=== PATIENT | male | born 1980 | race Caucasian/White ===

== ENCOUNTER 2022-05-23 07:37 | Emergency (ER) | payer BC ==
[~2022-05-23] VITALS: Ht 182.9 cm; Wt 111.5 kg
[2022-05-23] MEDS ORDERED: ZYLO100T2 PO (07:50)
[2022-05-23] MEDS ORDERED: XARE20TA PO (07:50)
[2022-05-23] MEDS ORDERED: LISI5TAB11 PO (07:50)
[2022-05-23] MEDS ORDERED: ROSU20TA5 PO (07:50)
[2022-05-23] MEDS ORDERED: FLEC150T PO (07:50)
[2022-05-23] MEDS ORDERED: PRED20TA PO (08:18)
[2022-05-23] MEDS ORDERED: MAGIC MOUTHWASH *ED ONLY* 5ML ORAL SYRINGE SS ONE (08:20)
[2022-05-23] MEDS ORDERED: predniSONE 20 MG TAB PO ONE (08:20)
[2022-05-23 08:55] VITALS: BP 162/88
== END 2022-05-23 09:04 | disposition home or self-care (01) ==
LOC: M ED 07:37
DX: K12.2 Cellulitis and abscess of mouth (principal); G47.30 Sleep apnea, unspecified; I48.91 Unspecified atrial fibrillation; I10 Essential (primary) hypertension; E78.5 Hyperlipidemia, unspecified; Z86.711 Personal history of pulmonary embolism; Z86.718 Personal history of other venous thrombosis and embolism; Z79.01 Long term (current) use of anticoagulants; Z79.899 Other long term (current) drug therapy; Z88.0 Allergy status to penicillin
CPT/HCPCS: 99283; J7512

== ENCOUNTER 2025-05-22 16:25 | Emergency (ER) | payer BC ==
[~2025-05-22] VITALS: Ht 182.9 cm; Wt 114.1 kg
[~2025-05-22 16:25] MED LIST: FLEC150T PO; LISI5TAB11 PO; PRED20TA PO; ROSU20TA86 PO; XARE20TA PO; ZYLO100T2 PO
[2025-05-22 16:38] VITALS: TEMP 97.8
[2025-05-22] MEDS ORDERED: METO1TAB32 PO (16:46)
[2025-05-22] MEDS ORDERED: ALLO10TA PO (16:57)
[2025-05-22] MEDS ORDERED: LEXA1TAB2 PO (16:57)
[2025-05-22] MEDS ORDERED: HOME MED LIST COMPLETE! XX SCH (17:00)
[2025-05-22 17:10] LABS: BASO # 0.0 10^3/uL (0.0-0.2); BASO % 0.4 % (0.0-1.0); EOS # 0.3 10^3/uL (0.0-0.5); EOS % 3.6 % (0.0-3.0); LYMPH # 2.0 10^3/uL (1.5-5.0); LYMPH % 25.6 % (24.0-44.0); MONO # 0.6 10^3/uL (0.0-0.8); MONO % 8.1 % (2.0-8.0); NEUTROPHILS # 4.9 10^3/uL (1.5-8.5); NEUTROPHILS % 62.2 % (36.0-66.0); PLATELET COUNT, AUTOMATED 196 10^3/uL (150-450)
[2025-05-22] MEDS ORDERED: ACETAMINOPHEN 325 MG TAB PO PRN (17:45)
[2025-05-22 18:02] LABS: INR 1.35
[2025-05-22 18:06] LABS: CK-MB VALUE MASS 15.6 NG/ML (<3.6)
[2025-05-22 18:10] LABS: FREE T4 0.97 NG/DL (0.89-1.76)
[2025-05-22 18:14] LABS: ALT/SGPT 43 U/L (7.0-40); AST/SGOT 44 U/L (<34); CALCIUM LEVEL 9.0 MG/DL (8.5-10.1); CARBON DIOXIDE LEVEL 26 MMOL/L (20-31); CHLORIDE LEVEL 105 MMOL/L (98-107); CPK CREATINE PHOSPHOKINASE 642 U/L (46-171); CREATININE FOR GFR 0.96 MG/DL (0.70-1.30); GLOMERULAR FILTRATION RATE > 90.0 (>60); MAGNESIUM LEVEL 1.7 MG/DL (1.8-2.4); MB/CK RELATIVE INDEX 2.42 (< OR =4); PHOSPHORUS LEVEL 4.1 MG/DL (2.5-4.9); POTASSIUM SERUM 3.9 MMOL/L (3.5-5.1); SODIUM LEVEL 143 MMOL/L (136-145)
[2025-05-22] MEDS ORDERED: ISOVUE-370 76% 100 ML VIAL As Ordered ONE (18:53)
[2025-05-22] MEDS: MAGNESIUM OXIDE 400 MG TAB PO ONE (18:59)
[2025-05-22 19:14] LABS: CK-MB VALUE MASS 13.6 NG/ML (<3.6)
[2025-05-22 19:15] LABS: CPK CREATINE PHOSPHOKINASE 606.0 U/L (46-171); MB/CK RELATIVE INDEX 2.24 (< OR =4)
[2025-05-22 21:44] LABS: CK-MB VALUE MASS 10.9 NG/ML (<3.6)
[2025-05-22 21:45] LABS: CPK CREATINE PHOSPHOKINASE 525.0 U/L (46-171); MB/CK RELATIVE INDEX 2.07 (< OR =4)
[2025-05-22 22:18] VITALS: BP 146/86; O2SAT 96
== END 2025-05-22 22:23 | disposition home or self-care (01) ==
LOC: M ED 16:25
DX: R07.9 Chest pain, unspecified (principal); K92.2 Gastrointestinal hemorrhage, unspecified; I48.91 Unspecified atrial fibrillation; K76.0 Fatty (change of) liver, not elsewhere classified; R16.0 Hepatomegaly, not elsewhere classified; I10 Essential (primary) hypertension; E78.5 Hyperlipidemia, unspecified; M10.9 Gout, unspecified; Z90.49 Acquired absence of other specified parts of digestive tract; Z88.0 Allergy status to penicillin; Z82.49 Family history of ischemic heart disease and other diseases of the circulatory system; K42.9 Umbilical hernia without obstruction or gangrene; Z79.899 Other long term (current) drug therapy
CPT/HCPCS: 36415; 71046; 71275; 74174; 80048; 80076; 82550; 82553; 83735; 84100; 84439; 84443; 84484; 85025; 85610; 85730; 86850; 86900; 86901; 93005; 93041; 94760; 99285; Q9967